=== PATIENT | female | born 1945 | race Caucasian/White ===

== ENCOUNTER → 2020-06-08 16:05 | Outpatient (CLI) | payer MEDICARE, OTHER, SELFPAY ==
--- NOTE | 2020-06-08 | DI.MRI.S_ITS ---
PROCEDURE: MR LUMBAR SPINE WO CON INDICATIONS: Other intervertebral disc degeneration, lumbar reg TECHNIQUE: Noncontrast sagittal T1 spin echo and T2 fast echo, sagittal STIR, axial T1 and T2 fast spin echo through the lumbar spine. In cases with scoliosis, additional coronal T2 fast spin echo may be performed. COMPARISON: [facility] [place], CR, XR LUMBAR SPINE WITH OLBIQUES PLUS FLEXION EXTENSION, 05/30/2020, 15:13. FINDINGS: Image quality: Excellent. Alignment and Curvature: There is mild L4-L5 and L5-S1 anterolisthesis. Bones: Transitional anatomy with non-rudimentary S1-S2 disc noted. Reactive endplate changes noted adjacent to the L4-L5 disc. No acute vertebral body compression fractures. Spinal Cord: Conus medullaris terminates at the L1 level. Visualized cord demonstrates normal signal and size. Paraspinous Soft Tissues: No paravertebral masses. L1-L2: Slight loss of disc signal. Mild, diffuse disc bulge. No central stenosis. No neural foraminal narrowing. No neural compression. L2-L3: Normal appearance. L3-L4: Loss of disc signal. Mild, diffuse disc bulge. No central stenosis. No neural foraminal narrowing. No neural compression. L4-L5: Loss of disc signal and height. Mild to moderate diffuse disc bulge. Severe bilateral facet hypertrophy. Severe ligamentum flavum hypertrophy. Severe narrowing of the central canal with compression of the nerve roots of the cauda equina. Mild to moderate right and moderate to severe left neural foraminal narrowing with slight compression of the exiting left L4 nerve root. L5-S1: Loss of disc signal. Mild, diffuse disc bulge. Moderate bilateral facet hypertrophy. Moderate narrowing of the central canal. Moderate to severe right and mild left neural foraminal narrowing with compression of the exiting right L5 nerve root. S1-S2: Normal appearance. IMPRESSION: 1. Transitional anatomy with non-rudimentary S1-S2 disc. 2. Grade 1 L4-L5 and L5-S1 degenerative spondylolisthesis. 3. Severe L4-L5 central canal narrowing with compression of the nerve roots of the cauda equina. 4. Moderate to severe left L4-L5 neural foraminal narrowing with compression of the exiting left L4 nerve root. Moderate to severe right L5-S1 neural foraminal narrowing with compression of the exiting right L5 nerve root. Dictated by: Candi Stovall MD, PhD on 06/11/2020 at 13:06 Approved by: Candi Stovall MD, PhD on 06/11/2020 at 13:11
== END ==
PROVIDERS: PCP Nurse Practitioner; Referring Provider Physical Medicine & Rehabilitation Pain Medicine; Visit Provider Physical Medicine & Rehabilitation Pain Medicine
DX: M51.36 Other intervertebral disc degeneration, lumbar region (principal); M43.16 Spondylolisthesis, lumbar region; M43.17 Spondylolisthesis, lumbosacral region; M48.061 Spinal stenosis, lumbar region without neurogenic claudication; M48.07 Spinal stenosis, lumbosacral region
CPT/HCPCS: 72148

== ENCOUNTER → 2020-08-30 11:37 | Outpatient (CLI) | payer MEDICARE, OTHER, SELFPAY ==
[2020-08-30 13:20] LABS: Add Manual Diff / Slide Review NO; Basophils Absolute Auto 0 /uL (0-100); Basophils Percent Auto 0.3 % (0-2); Eosinophils Absolute Auto 100 /uL (0-450); Eosinophils Percent Auto 1.4 % (2-4); Hematocrit 39.9 % (36-46); Hemoglobin 13.6 g/dL (12.0-16.0); Lymphocytes Absolute Auto 2400 /uL (1100-4500); Lymphocytes Percent Auto 39.9 % (25-40); Mean Corpuscular HGB Conc 34.2 % (30-36); Mean Corpuscular Hemoglobin 30.6 PG (26-34); Mean Corpuscular Volume 89.6 fL (80-100); Monocytes Absolute Auto 400 /uL (0-900); Neutrophils Absolute Auto 3100 /uL (1500-7000); Neutrophils Percent Auto 52.4 % (50-75); Platelet Count 248 X10^3/uL (150-400); Red Blood Cell Count 4.45 X10^6/uL (4.0-5.2); Red Cell Distribution Width 12.7 % (11.6-14.8)
[2020-08-30 13:41] LABS: Alanine Aminotransferase 27 IU/L (<35); Albumin 3.9 g/dL (3.5-5.0); Albumin Globulin Ratio 1.4 (1.0-2.8); Alkaline Phosphatase 60 U/L (38-126); Aspartate Aminotransferase 27 IU/L (14-36); BUN Creatinine Ratio 34.3 (6-22); Bilirubin Total 0.5 mg/dL (0.2-1.3); Blood Urea Nitrogen 23 mg/dL (7-17); Calcium 9.9 mg/dL (8.4-10.2); Carbon Dioxide 31 mmol/L (22-32); Chloride 101 mmol/L (98-107); Estimated Glomerular Filt Rate > 60.0 mL/min (>60); Globulin 2.7 g/dL (1.7-4.1); Glucose 96 mg/dL (80-110); HEMOLYSIS < 15 (0-50); Potassium 4.1 mmol/L (3.4-5.1); Sodium 136 mmol/L (137-145); Total Protein 6.6 g/dL (6.3-8.2)
== END ==
PROVIDERS: Orthopaedic Surgery; PCP Nurse Practitioner; Referring Provider Physician Assistant Surgical; Visit Provider Physician Assistant Surgical
DX: M43.16 Spondylolisthesis, lumbar region (principal); M54.16 Radiculopathy, lumbar region; Z01.818 Encounter for other preprocedural examination; M48.061 Spinal stenosis, lumbar region without neurogenic claudication
CPT/HCPCS: 36415; 80053; 85025; 93005

== ENCOUNTER → 2022-08-25 16:04 | Outpatient (CLI) | payer MEDICARE, OTHER, SELFPAY ==
--- NOTE | 2022-08-25 16:06 | DI.MRI.S_ITS ---
PROCEDURE: MR HIP LT WO CON INDICATIONS: Trochanteric bursitis, left hip TECHNIQUE: Noncontrast coronal T1 spin echo and STIR through the bony pelvis. Coronal and axial T2 fast spin echo with fat saturation, sagittal T1 spin echo, and oblique axial T2 fast spin echo with fat saturation through the hip. COMPARISON: [facility] [place], CR, XR HIP 2 VIEWS LEFT, 07/17/2022, 15:23. FINDINGS: Image quality: Excellent. Bones and joints: Bone marrow of the pelvic ring and proximal femurs show normal signal throughout. No intraosseous lesions or fractures. No avascular necrosis of the femoral heads. Mild degenerative changes at the pubic symphysis. Postsurgical changes are seen in the lumbar spine with metal artifact that obscures adjacent structures. Tendons and ligaments: There is partial tearing of the distal gluteus medius tendon at the insertion onto the greater trochanter superimposed on chronic gluteus medius and minimus tendinosis. The proximal iliotibial band appears intact. The iliopsoas tendon appears intact, without adjacent bursal fluid collections. The origin of the hamstring tendon demonstrates mild tendinosis. The direct and indirect heads of the rectus femoris muscle origin appear intact. Labrum and cartilage: There is nondisplaced tearing of the anterosuperior labrum. Mild partial-thickness cartilage irregularity of the superior left hip. There is normal morphology of the femoral head and the acetabulum. Soft tissues: Edema is seen within the left gluteus medius and minimus muscles, consistent with low-grade strains. There is mild edema within the quadratus femoris muscle that may be related to a muscle strain versus ischial femoral impingement. Ischial femoral distance is approximately 12 mm. No quadratus femoris muscle atrophy is seen. Mild edema within the obturator externus muscle. Status post hysterectomy. No acute abnormality is seen in the included pelvis. IMPRESSION: 1. Partial intrasubstance tearing of the distal left gluteus medius tendon at its insertion onto the greater trochanter superimposed on gluteus medius and minimus tendinosis. 2. Low-grade muscle strains within the left gluteus medius and minimus muscles. 3. Soft tissue edema within the quadratus femoris muscle may be secondary to a low-grade strain versus ischial femoral impingement. Ischial femoral distance is 12 mm. 4. Small nondisplaced tear of the anterosuperior labrum. 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 5. Postsurgical changes in the spine with associated metal artifact. Approved by: Twin Castro M.D. on 08/25/2022 at 20:33
== END ==
PROVIDERS: PCP Physician Assistant; Referring Provider Physical Medicine & Rehabilitation; Visit Provider Physical Medicine & Rehabilitation
DX: M70.62 Trochanteric bursitis, left hip (principal); S76.312A Strain of muscle, fascia and tendon of the posterior muscle group at thigh level, left thigh, initial encounter; S73.192A Other sprain of left hip, initial encounter; M94.252 Chondromalacia, left hip; R60.0 Localized edema
CPT/HCPCS: 73721

== ENCOUNTER → 2022-12-30 18:59 | Outpatient (CLI) | payer MEDICARE, OTHER, SELFPAY ==
--- NOTE | 2022-12-30 | DI.MRI.S_ITS ---
PROCEDURE: MR PELVIS WO CON INDICATIONS: Sacrococcygeal disorders, not elsewhere classified TECHNIQUE: Noncontrast axial and oblique coronal T1 spin echo and STIR through the sacroiliac joints. COMPARISON: None. FINDINGS: Image quality: Excellent. Bones: Postsurgical changes are noted in lower lumbar spine. There is mild marrow edema involving right sacrum adjacent to right sacroiliac joint concerning for sacroiliitis. No edema is seen adjacent to left sacroiliac joint. No bony ankylosis. No suspicious marrow space occupying lesions. Soft tissues: No presacral masses. Rectum appears normal in caliber and wall thickness. No pathologic free pelvic fluid. Edema within bilateral paraspinous soft tissue in lower back is seen likely associated with lumbar spine fusion surgery. IMPRESSION: 1. Finding is suggestive of mild right-sided sacroiliitis. Normal appearing left sacroiliac joint. No evidence of ankylosis. No fracture or dislocation. 2. No presacral soft tissue abnormalities. Postsurgical changes seen in lower back paraspinous soft tissue. No drainable fluid collection. Dictated by: Mendez Ruiz M.D. on 12/31/2022 at 9:10 Approved by: Mendez Ruiz M.D. on 12/31/2022 at 9:12
--- NOTE | 2022-12-30 | DI.MRI.S_ITS ---
PROCEDURE: MR LUMBAR SPINE WO CON INDICATIONS: Sacrococcygeal disorders, not elsewhere classified TECHNIQUE: Noncontrast sagittal T1 spin echo and T2 fast echo, sagittal STIR, and T2 fast spin echo through the lumbar spine. In cases with scoliosis, additional coronal T2 fast spin echo may be performed. COMPARISON: [facility] [place], CR, XR LUMBAR SPINE 2 OR 3 VIEWS, 07/17/2022, 15:22. [facility], , MR LUMBAR SPINE WO CON, 06/08/2020, 16:54. FINDINGS: Image quality: Excellent. Alignment and Curvature: 6 millimeter anterolisthesis of L4 on L5. Bone Marrow: Patient is status post posterior fusion at L3 through L5 levels with surgical hardware in place and intervertebral spacers seen. No gross marrow edema. No acute vertebral body compression fractures. Spinal Cord: Conus medullaris terminates at the L1 level. Visualized cord demonstrates normal signal and size. Paraspinous Soft Tissues: No paravertebral masses. T12-L1: Normal appearance. L1-L2: Normal appearance. L2-L3: There is loss of disc signal and disc height. Broad-based disc bulge and bilateral facet arthrosis with hypertrophy of ligamentum flavum is seen causing moderate central canal stenosis and bilateral neural foraminal narrowing. L3-L4: Postfusion changes and right-sided laminectomy is seen. Bilateral facet arthrosis is seen. No significant canal stenosis or neural foraminal narrowing. L4-L5: Post fusion changes and prior right-sided laminectomy is seen. Bilateral facet arthrosis is noted. There is no significant central canal stenosis. Moderate left-sided neural foraminal narrowing is present. L5-S1: Loss of disc height and disc signal. Diffuse disc bulge and bilateral facet arthrosis is seen with mild central canal stenosis and left-sided neural foraminal narrowing. IMPRESSION: 1. Prior posterior fusion and right laminectomy at L3-4 and L4-5 levels. 6 millimeter anterolisthesis of L4 on L5. No acute compression fracture. No marrow edema. 2. Broad-based disc bulge and bilateral facet arthrosis with hypertrophy of ligamentum flavum at L2-3 and L5-S1 levels causing various degrees of central canal stenosis and bilateral neural foraminal narrowing as above. 3. Bilateral facet arthrosis at L3-4 and L4-5 levels with moderate left-sided neural foraminal narrowing at L4-5 level. 4. No gross paraspinous soft tissue abnormalities. Dictated by: Mendez Ruiz M.D. on 12/31/2022 at 8:55 Approved by: Mendez Ruiz M.D. on 12/31/2022 at 9:01
== END ==
PROVIDERS: PCP Physician Assistant; Referring Provider Physical Medicine & Rehabilitation; Visit Provider Physical Medicine & Rehabilitation
DX: M53.3 Sacrococcygeal disorders, not elsewhere classified (principal); M43.16 Spondylolisthesis, lumbar region; M51.36 Other intervertebral disc degeneration, lumbar region; M51.37 Other intervertebral disc degeneration, lumbosacral region; M47.816 Spondylosis without myelopathy or radiculopathy, lumbar region; M47.817 Spondylosis without myelopathy or radiculopathy, lumbosacral region; M48.061 Spinal stenosis, lumbar region without neurogenic claudication; M48.07 Spinal stenosis, lumbosacral region; Z98.1 Arthrodesis status
CPT/HCPCS: 72148; 72195

== ENCOUNTER → 2023-01-22 13:38 | Outpatient (CLI) | payer MEDICARE, OTHER, SELFPAY ==
--- NOTE | 2023-01-22 | DI.ECHO.S_ITS ---
[facility] +---------+ : : [address] : : : [place], [place] : : : : [id number] : : : : Phone: [phone] Echocardiogram Report + + :Name: WILBER JORGE Study Date: 01/22/2023 Height: 64 in : :[facility] ReadingLocation: Weight: 165 lb : : Gender: Female BSA: 1.8 m2 : :: 1945 Age: 77 yrs BP: 156/82 mmHg: :Reason For Study: Dyspnea : :Ordering Physician: Arielle, : :[place] Performed By: Zamzam Griffith : :Referring: UNSPECIFIED : + + Interpretation Summary The ejection fraction is estimated to be 60-65%. There are no obvious focal wall motion abnormalities noted but poor endocardial definition reduces the sensitivity for the detection of such. There is no significant valvular heart disease. Procedure: A two-dimensional transthoracic echocardiogram with color flow and Doppler was performed. The study quality was technically adequate. There is no prior echocardiogram noted for this patient. The patient was in normal sinus rhythm during the exam. The patient had frequent PACs during the exam. Left Ventricle: The left ventricle is normal in size. The ejection fraction is estimated to be 60-65%. There are no obvious focal wall motion abnormalities noted but poor endocardial definition reduces the sensitivity for the detection of such. Diastolic parameters suggest a relaxation abnormality of the left ventricle, consistent with probable normal filling pressures. Right Ventricle: The right ventricle is normal size. The right ventricular systolic function is normal. Atria: The left atrial size is normal. Right atrial size is normal. There is no Doppler evidence for an interatrial shunt. Mitral Valve: The mitral valve is normal. There is mild mitral annular calcification. There is no mitral valve stenosis. There is trace mitral regurgitation. Aortic Valve: The aortic valve is trileaflet. The aortic valve opens well. There is mild aortic valve sclerosis. There is no aortic valve stenosis. There is trace aortic regurgitation. Tricuspid Valve: The tricuspid valve leaflets are thickened and/or calcified, but open well. There is no tricuspid stenosis. There is trace tricuspid regurgitation. The right ventricular systolic pressure is estimated to be at least 26 mmHg based on an estimated right atrial pressure of 3 mm Hg. Pulmonic Valve: The pulmonic valve leaflets are thin and pliable; valve motion is normal. There is no pulmonic valvular stenosis. There is trace pulmonic regurgitation. Great Vessels: The aortic root is normal size. The ascending aorta is normal in size. The pulmonary artery is normal size. The IVC is of normal diameter and collapses greater than 50% with a sniff. This suggests a low right atrial pressure of 3 mm Hg. Pericardium/ Pleura There is no pericardial effusion. There is no pleural effusion. MMode/2D Measurements & Calculations LVIDd: 3.8 cm LVOT diam: 1.7 cm LVIDs: 2.6 cm Ao root diam: 3.0 cm FS: 31.6 % asc Aorta Diam: 3.1 cm IVSd: 1.2 cm LVPWd: 1.2 cm LV staley. diameter/BSA (cm/m^2): 2.1 LV sys. diameter/BSA (cm/m^2): 1.4 LA A2 area: 15.9 cm2 RA long axis: 4.6 cm LA A4 area: 15.1 cm2 RA area: 11.4 cm2 LA length (vol): 4.8 cm RA vol: 24.0 ml LA vol: 42.8 ml RA : 13.3 ml/m2 LA vol index: 23.8 ml/m2 RVD1 (basal): 2.8 cm LVLs ap4: 5.2 cm LVLd ap2: 6.3 cm TAPSE_phl: 2.3 cm LVLs ap2: 5.5 cm Doppler Measurements & Calculations Ao V2 max: 126.0 cm/sec LVOT Max Fausto: 103.0 cm/sec Ao V2 mean: 89.5 cm/sec LV V1 max P.2 mmHg Ao max P.0 mmHg LV V1 VTI: 21.1 cm Ao mean P.0 mmHg TATY(I,D): 1.8 cm2 Ao V2 VTI: 27.2 cm TATY(V,D): 1.9 cm2 sev ratio: 0.78 TATY indexed to BSA (cm^2/m^2): 0.98 MV E max fausto: 105.0 cm/sec TR max fausto: 239.0 cm/sec MV A max fausto: 126.0 cm/sec TR max P.9 mmHg MV E/A: 0.83 PA V2 max: 103.0 cm/sec MV dec time: 0.21 sec PA V2 mean: 75.0 cm/sec PA mean P.0 mmHg PA pr(Accel): 29.0 mmHg SV(LVOT): 47.9 ml AV VR_phl: 0.82 TATY(VTI)/BSA_phl: 0.98 MV P1/2t-pr_phl: 61.0 msec Reading Physician:03:16 PM
== END ==
PROVIDERS: PCP Physician Assistant; Referring Provider Physician Assistant; Visit Provider Physician Assistant
DX: I34.81 Nonrheumatic mitral (valve) annulus calcification (principal); I35.8 Other nonrheumatic aortic valve disorders; R06.09 Other forms of dyspnea; R60.0 Localized edema; R00.2 Palpitations
CPT/HCPCS: 93306

== ENCOUNTER → 2023-06-08 11:20 | Outpatient (CLI) | payer MEDICARE, OTHER, SELFPAY ==
[2023-06-08 12:35] LABS: BUN Creatinine Ratio 39.2 (6-22); Blood Urea Nitrogen 29 mg/dL (7-17); Calcium 9.7 mg/dL (8.4-10.2); Carbon Dioxide 33 mmol/L (22-32); Chloride 99 mmol/L (98-107); Estimated Glomerular Filt Rate > 60 mL/min (>60); Glucose 88 mg/dL (80-110); HEMOLYSIS < 15 (0-50); Magnesium 1.8 mg/dL (1.6-2.3); Potassium 3.7 mmol/L (3.4-5.1); Sodium 138 mmol/L (137-145)
[2023-06-08 13:03] LABS: Thyroid Stimulating Hormone 1.66 uIU/mL (0.47-4.68)
== END ==
PROVIDERS: PCP Physician Assistant; Referring Provider Internal Medicine Cardiovascular Disease; Visit Provider Internal Medicine Cardiovascular Disease
DX: I49.3 Ventricular premature depolarization (principal); R00.2 Palpitations; I47.29 Other ventricular tachycardia
CPT/HCPCS: 36415; 80048; 83735; 84443